=== PATIENT | female | born 1955 | race Caucasian/White ===

== ENCOUNTER 2021-10-15 14:06 | Outpatient (CLI) | payer MEDICARE, SELFPAY ==
--- NOTE | 2021-10-15 14:12 | MM_ITS ---
WS: [id number] BILATERAL 3D TOMOSYNTHESIS DIGITAL SCREENING MAMMOGRAPHY WITH CAD CLINICAL INFORMATION: SCREENING HISTORY: Screening mammogram. No current complaints. COMPARISON: TECHNIQUE: Bilateral CC and MLO views. FINDINGS: Scattered fibroglandular densities bilaterally. Incidental punctate calcification RIGHT breast. 5 mm asymmetric density subareolar RIGHT breast progressed compared to February 24, with a few punctate ca lcifications. RECOMMEND RIGHT BREAST SPOT MAGNIFICATION VIEWS AND ULTRASOUND FOR FURTHER EVALUATION. Unremarkable LEFT breast. MM/[place] [id number] IMPRESSION: BI-RADS: 0-Incomplete: Need additional imaging evaluation FOLLOW UP: Need Additional Imaging Recommend return to annual screening mammography.
== END 2021-10-15 14:07 | disposition home or self-care (01) ==
PROVIDERS: Visit Provider Registered Nurse
DX: Z12.31 Encounter for screening mammogram for malignant neoplasm of breast (principal)
CPT/HCPCS: 77063; 77067

== ENCOUNTER 2021-11-05 14:11 | Outpatient (CLI) | payer MEDICARE, SELFPAY ==
--- NOTE | 2021-11-05 14:22 | MM_ITS ---
WS: [id number] RIGHT 3D TOMOSYNTHESIS DIGITAL MAMMOGRAPHY WITH CAD CLINICAL INFORMATION: RT BREAST CALCIFICATION COMPARISON: October 15, 2021 TECHNIQUE: 5 views of the right breast were obtained. FINDINGS: Scattered fibroglandular densities of the right breast. Stable 5 mm asymmetric density subareolar RIG HT breast which partially compresses out on the spot compression views. Ultrasound described below. ULTRASOUND BREAST RIGHT TECHNIQUE: Ultrasound right breast focused area of concern. CLINICAL INFORMATION: RT BREAST ASYMMETRY COMPARISON: None. FINDINGS: Ultrasound RIGHT breast at the areola. A few dilated ducts compatible with ductal ectasia. Intraducta l debris. No focal lesions. Findings are probably benign. Recommend six-month follow-up RIGHT diagnos tic mammography and ultrasound to confirm stability. MM/[place] [id number] IMPRESSION: BI-RADS: 3-Probably Benign FOLLOW UP: 6 Month Follow-up Recommend 6 month follow-up RIGHT diagnostic mammography and ultrasound to conf irm stability.
== END 2021-11-05 14:12 | disposition home or self-care (01) ==
LOC: RAD 14:14
PROVIDERS: Visit Provider Registered Nurse
DX: R92.1 Mammographic calcification found on diagnostic imaging of breast (principal)
CPT/HCPCS: 76642; 77061